=== PATIENT | female | born 1980 | race Caucasian/White ===

== ENCOUNTER 2018-01-06 18:39 | Emergency (ER) | payer SELFPAY ==
[~2018-01-06] VITALS: Ht 147.3 cm; Wt 62.6 kg
[2018-01-06 18:45] VITALS: BP 122/73
[2018-01-06] MEDS ORDERED: ACETAMINOPHEN EXTRA STRENGTH 500 MG TAB PO ONE (21:55)
[2018-01-06 22:25] VITALS: BP 119/86
== END 2018-01-06 22:25 | disposition home or self-care (01) ==
LOC: MED 18:39
DX: S82.61XA Displaced fracture of lateral malleolus of right fibula, initial encounter for closed fracture (principal); W10.9XXA Fall (on) (from) unspecified stairs and steps, initial encounter; Y93.89 Activity, other specified; Y92.89 Other specified places as the place of occurrence of the external cause; Y99.8 Other external cause status
CPT/HCPCS: 29515; 73610; 99284